=== PATIENT | female | born 1975 | race Caucasian/White ===

== ENCOUNTER 2022-07-28 14:42 | Emergency (ER) | payer MEDICAID, SELFPAY ==
[2022-07-28 14:44] VITALS: BP 158/95; PULSE 103; RESP 21; TEMP 36.4; O2SAT 100; BMI 20.7
--- NOTE | 2022-07-28 14:52 | EKG12_ITS ---
Test Reason : CP Blood Pressure : / mmHG Vent. Rate : 101 BPM Atrial Rate : 101 BPM P-R Int : 148 ms QRS Dur : 088 ms QT Int : 340 ms P-R-T Axes : 031 049 042 degrees QTc Int : 440 ms Sinus tachycardia Otherwise normal ECG Confirmed by GLORIA ZIEGLER, YONY ([id number]), book editor SIM SEVILLA ([id number]) on 07/31/2022 8:37:50 AM Referred By: Confirmed By:YONY CASTRO MD
--- NOTE | 2022-07-28 15:02 | RAD_ITS ---
EXAM: XR CHEST, 1 VIEW CLINICAL INDICATION: chest pain TECHNIQUE: Frontal view of the chest. COMPARISON: No relevant prior studies available. FINDINGS: LUNGS AND PLEURAL SPACES: Unremarkable. No consolidation or edema. No pneumothorax. No effusion. HEART: Unremarkable. Cardiac silhouette not enlarged. MEDIASTINUM: Central airways and mediastinal contour are unremarkable. BONES/JOINTS: Unremarkable. SOFT TISSUES: Unremarkable. RAD/Chest 1 View (Portable) IMPRESSION: No radiographic evidence of acute cardiopulmonary disease. Electronically Signed: Trent Grace MD at 15:28 EDT ,
--- NOTE | 2022-07-28 15:27 | ED.VIS.CHEST ---
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 Patient states she works at [employer], she just started 3 weeks ago. She was at work last night (she states is not overly strenuous) when she started to feel warm and tingly, her left face was tingly, she had ringing or ears and she felt like she was going to pass out. She left work and drove home. When she got home at 11:08 PM she checked her blood pressure and it was 204/124. Patient states she does try to stay calm and relaxed. When she woke up this morning she felt okay until around 10 minutes prior to arrival to the emergency room. States she felt her heart was racing and she checked her blood pressure and the top number was 190. She again felt like she was going to pass out and felt nauseous. She feels that her heart is racing. She states she never had any like this before. She denies any other symptoms such as difficulty breathing or chest pain. She denies any swelling of her legs. She denies any cough or URI symptoms. She notes that last weekend (1 week ago) she had about a 6-hour episode of pleuritic pain in her right lower ribs that spontaneously resolved. Patient is especially concerned because her father of a maker in his early 50s. Patient currently denies any numbness, tingling or weakness. No other complaints at this time. PFSH PFSH Allergy/AdvReac Type Severity Reaction Status Date / Time gabapentin AdvReac Other Verified 07/28/22 14:43 Pqwhcet-OPJ-GdU Reductase AdvReac Other Verified 07/28/22 14:43 Inhibitor Social History Smoking Status: Current every day smoker tobacco type: cigarettes ROS ROS ED Constitutional Constitutional ED: Denies chills or fever(s) Eyes Eyes: Denies blurry vision ENT ENT ED: Reports other Details: Intermittent ringing in her ears ; Denies ear pain, rhinorrhea or sore throat Cardiovascular Cardiovascular: Reports as per HPI and palpitations; Denies chest pain Respiratory/Chest Respiratory/Chest: Denies cough or dyspnea Gastrointestinal Gastrointestinal: Reports nausea; Denies abdominal pain or vomiting Genitourinary Genitourinary ED: Denies dysuria Musculoskeletal Musculoskeletal: Denies arthralgias or myalgias Integumentary Denies rash Neurologic Neurologic: Denies headache(s) or weakness Psychiatric Psychiatric: Reports anxiety Hematologic/Lymphatic Hematologic/Lymphatic: Denies easy bleeding or easy bruising EXAM Physical Exam Const Vital Signs: 07/28/22 14:44 07/28/22 14:46 07/28/22 14:52 Temperature 97.6 F L Temperature Source Temporal Pulse Rate 103 H Respiratory Rate 21 H Respiratory Effort Normal Non-Labored Blood Pressure 158/95 H Blood Pressure Mean 116 Pulse Ox 100 Oxygen Delivery Method Room Air Room Air 07/28/22 18:42 Temperature Temperature Source Pulse Rate Respiratory Rate Respiratory Effort Blood Pressure 131/97 H Blood Pressure Mean 108 Pulse Ox Oxygen Delivery Method Positive well nourished and well developed General Appearance ED: well developed and NAD HEENT Reports moist mucous membranes Eyes PERRL and EOMs intact bilaterally Neck supple and no JVD Chest Wall inspection of chest normal and palpation of chest normal Resp normal respiratory effort and clear to auscultation bilaterally Cardio regular rate, regular rhythm and no murmurs Peripheral Pulses: radial pulses present and dorsalis pedis pulses present GI normal to inspection, nondistended, normoactive bowel sounds and soft to palpation Extremity normal to inspection General Extremety ED: Negative for edema or pulses abnormal General Extremity: Negative for edema or pulses abnormal Neuro oriented x3, CN's II-XII intact bilaterally and no sensory deficits noted Neuro Narrative: NIH equals 0 Sensorium / Orientation: awake Motor Exam: strength 5/5 throughout; Negative for general weakness Psych mental status grossly normal Mood & Affect: anxious Skin no rashes or lesions noted and no wounds MDM MDM MDM Narrative Medical decision making narrative: Patient is a 47-year-old female presenting for palpitations. She does note elevated blood pressure readings at home. Patient's blood pressure is minimally elevated in the ER at 158/95 however on repeat it is now 131/97. Cardiac work-up as well as D-dimer and TSH is obtained. Patient is low risk per Wells criteria and her D-dimer is normal. Do not think a CTA is indicated. Her high since her troponin is normal x2. I do not think this is an ACS equivalent. Patient has a mildly elevated TSH with a normal free T3 3 and a mildly low free T4. Patient is counseled on this findings and need for outpatient follow-up for this. Patient encouraged to abstain from tobacco use. At this time I do think she is safe for outpatient follow-up for her palpitations. She does not have any significant arrhythmia or concerns for ischemia at this time. Patient is agreeable with this plan of care. Lab Data Attestation: I reviewed the patient's lab results. Labs: Laboratory Results - last 24 hr 07/28/22 07/28/22 07/28/22 14:55 14:55 14:55 WBC 7.5 RBC 4.73 Hgb 14.7 Hct 43.8 MCV 92.6 MCH 31.1 MCHC 33.6 RDW Std Deviation 42.5 RDW Coeff of Syd 12.4 Plt Count 259 MPV 10.4 Immature Gran % (Auto) 0.100 Neut % (Auto) 41.5 L Lymph % (Auto) 45.9 H [place] % (Auto) 8.9 Eos % (Auto) 2.8 Baso % (Auto) 0.8 Absolute Neuts (auto) 3.1 Absolute Lymphs (auto) 3.46 Nucleated RBC % 0 D-Dimer Quant (PE/DVT) 0.35 Sodium 140 Potassium 3.9 Chloride 105 Carbon Dioxide 27.0 Anion Gap 8 BUN 16 Creatinine 0.90 Estim Creat Clear Calc 67.45 Est GFR (MDRD) Af Amer 87 Est GFR (MDRD) Non-Af 72 BUN/Creatinine Ratio 17.8 Glucose 118 H Calcium 9.7 Magnesium 2.4 Troponin I High Sens 4 TSH 6.65 H Free T4 Free T3 pg/dL 07/28/22 07/28/22 14:55 17:34 WBC RBC Hgb Hct MCV MCH MCHC RDW Std Deviation RDW Coeff of Syd Plt Count MPV Immature Gran % (Auto) Neut % (Auto) Lymph % (Auto) [place] % (Auto) Eos % (Auto) Baso % (Auto) Absolute Neuts (auto) Absolute Lymphs (auto) Nucleated RBC % D-Dimer Quant (PE/DVT) Sodium Potassium Chloride Carbon Dioxide Anion Gap BUN Creatinine Estim Creat Clear Calc Est GFR (MDRD) Af Amer Est GFR (MDRD) Non-Af BUN/Creatinine Ratio Glucose Calcium Magnesium Troponin I High Sens 4 TSH Free T4 0.72 L Free T3 pg/dL 2.4 Radiography Chest X-Ray - ED: Read by ED Physician, Read by Radiologist and No Acute Disease Diagnostic Testing: Clinical Impression(s) from Imaging Studies Chest X-Ray 07/28/22 15:02 IMPRESSION: No radiographic evidence of acute cardiopulmonary disease. Electronically Signed: Trent Grace MD at 15:28 EDT , Rhythm Strip Rhythm Strip: Sinus Tach Rate: 101 Ectopy: None EKG Initial EKG: Attestation: I personally reviewed and interpreted this EKG as follows: Interpretation: Sinus Tachycardia Comments: Sinus tachycardia rate of 101 bpm Normal axis Normal intervals Normal ST segments Prior: No Prior Discharge Plan Triage Chief Complaint: Chest Pain ED Provider: María Stanley Dx/Rx/DC Orders Clinical Impression: Palpitation, Elevated blood pressure reading, Elevated TSH Instructions: ED Palpitations Primary Care Provider: Mehrdad Kennedy Referrals: Mehrdad Kennedy [Other] Activity Restrictions/Additional Instructions: Please follow-up with your primary care doctor for further evaluation of your symptoms today and for cardiac testing. Your TSH was minimally elevated and your free T4 was mildly low today. Your free T4 3 level was normal. This can be followed with your primary care doctor as well Disposition Disposition: Home, Self Care
[2022-07-28 15:31] LABS: Absolute Lymphocyte Count 3.46 X10^3/uL (0.83-4.51); Absolute Neutrophil Count 3.1 X10^3/uL (2.0-7.7); Basophil# 0.06 X10^3/uL; Basophil% 0.8 % (0-1); Eosinophil# 0.21 X10^3/uL; Eosinophils% 2.8 % (0-5); Hematocrit 43.8 % (37-47); Hemoglobin 14.7 g/dL (12.0-15.0); Lymphocyte # 3.46 X10^3/ul (0.83-4.51); Lymphocyte % 45.9 % (19-41); Mean Corp Hgb Conc 33.6 g/dL (32-36); Mean Corpuscular Hgb 31.1 pg (27.0-32.0); Mean Corpuscular Volume 92.6 fL (81-99); Mean Platelet Vol. 10.4 fl (6.2-12.0); Monocyte# 0.67 X10^3/uL; Monocyte% 8.9 % (0-10); NRBC Flagged by Analyzer 0 % (0-5); Neutrophil # 3.12 X10^3/uL (2.7-7.7); Neutrophil % 41.5 % (47-70); Platelet Count 259 K/mm3 (150-450); RBC Distribution Width CV 12.4 % (11.6-14.6); RBC Distribution Width SD 42.5 fl (35.1-43.9); Red Blood Count 4.73 M/mm3 (4.2-5.4); White Blood Count 7.5 K/mm3 (4.4-11.0)
[2022-07-28 15:51] LABS: Anion Gap 8 (5-15); BUN 16 mg/dL (7-18); BUN/Creat Ratio 17.8 RATIO (10-20); Calcium,Total 9.7 mg/dL (8.5-10.1); Chloride 105 mmol/L (98-107); EST Glomerular Filtration Rate 72 mL/min (>60); Est Glom Filt Rate - Afr Amer 87 mL/min (>60); Estimated Creatinine Clearance 67.45 ml/min; Glucose 118 mg/dL (74-106); Magnesium 2.4 mg/dL (1.6-2.6); Potassium 3.9 mmol/L (3.5-5.1); Sodium Level 140 mmol/L (136-145); Thyroid Stim Hormone (TSH) 6.65 uIU/mL (0.358-3.74); Troponin-I HS (w/2H Reflex) 4 pg/mL (3.0-54.0)
[2022-07-28] MEDS: 0.9% Normal Saline 1,000 ML 150 ML IV (15:58)
[2022-07-28 15:59] LABS: D-Dimer Quantitative (DVT/PE) 0.35 FEU/ug/m (0.27-0.49)
[2022-07-28 17:01] LABS: Reflex Troponin-HS? (from REC) Y
[2022-07-28 17:18] LABS: Free T3 2.4 pg/mL (2.18-3.98); T4 Free Direct 0.72 ng/dL (0.76-1.46)
[2022-07-28 18:29] LABS: Troponin-I HS 4 pg/mL (3.0-54.0)
[2022-07-28 18:42] VITALS: BP 131/97
[2022-07-28 19:04] VITALS: BP 124/81
== END 2022-07-28 19:18 | disposition home or self-care (01) ==
PROVIDERS: Emergency Provider Emergency Medicine; Visit Provider Emergency Medicine
DX: R00.2 Palpitations (principal); R03.0 Elevated blood-pressure reading, without diagnosis of hypertension; R94.6 Abnormal results of thyroid function studies; F17.210 Nicotine dependence, cigarettes, uncomplicated
CPT/HCPCS: 71045; 80048; 83735; 84439; 84443; 84481; 84484; 85025; 85379; 93005; 96360; 96361; 99284; J7030; A4216

== ENCOUNTER 2022-07-31 21:09 | Emergency (ER) | payer MEDICAID, SELFPAY ==
[2022-07-31 21:13] VITALS: BP 173/109; PULSE 111; RESP 15; TEMP 37.7; O2SAT 100; BMI 21.2
[2022-07-31 21:24] VITALS: O2SAT 100
--- NOTE | 2022-07-31 21:24 | EKG12_ITS ---
Test Reason : CP Blood Pressure : / mmHG Vent. Rate : 107 BPM Atrial Rate : 107 BPM P-R Int : 186 ms QRS Dur : 084 ms QT Int : 330 ms P-R-T Axes : 041 059 053 degrees QTc Int : 440 ms Sinus tachycardia Otherwise normal ECG Confirmed by GLORIA ZIEGLER, YONY ([id number]), material expeditor SIM SEVILLA ([id number]) on 08/01/2022 9:39:54 AM Referred By: WILMER Confirmed By:YONY CASTRO MD
[2022-07-31 21:41] LABS: Absolute Lymphocyte Count 2.25 X10^3/uL (0.83-4.51); Absolute Neutrophil Count 5.1 X10^3/uL (2.0-7.7); Basophil# 0.08 X10^3/uL; Eosinophil# 0.07 X10^3/uL; Eosinophils% 0.9 % (0-5); Hematocrit 47.6 % (37-47); Hemoglobin 16.2 g/dL (12.0-15.0); Lymphocyte # 2.25 X10^3/ul (0.83-4.51); Lymphocyte % 28.1 % (19-41); Mean Corpuscular Hgb 31.5 pg (27.0-32.0); Mean Corpuscular Volume 92.4 fL (81-99); Mean Platelet Vol. 9.9 fl (6.2-12.0); Monocyte# 0.44 X10^3/uL; Monocyte% 5.5 % (0-10); NRBC Flagged by Analyzer 0 % (0-5); Neutrophil # 5.14 X10^3/uL (2.7-7.7); Neutrophil % 64.1 % (47-70); Platelet Count 243 K/mm3 (150-450); RBC Distribution Width CV 12.3 % (11.6-14.6); Red Blood Count 5.15 M/mm3 (4.2-5.4)
--- NOTE | 2022-07-31 21:45 | RAD_ITS ---
EXAM: XR CHEST, 1 VIEW CLINICAL INDICATION: chest pain TECHNIQUE: Frontal view of the chest. COMPARISON: 07/28/2022 FINDINGS: LUNGS AND PLEURAL SPACES: Unremarkable. No consolidation or edema. No pneumothorax. No effusion. HEART: Unremarkable. Cardiac silhouette not enlarged. MEDIASTINUM: Central airways and mediastinal contour are unremarkable. BONES/JOINTS: Unremarkable. SOFT TISSUES: Unremarkable. RAD/Chest 1 View (Portable) IMPRESSION: No radiographic evidence of acute cardiopulmonary disease. Electronically Signed: Cl Gutierrez MD at 21:57 EDT ,
[2022-07-31 21:58] LABS: Anion Gap 7 (5-15); BUN 11 mg/dL (7-18); BUN/Creat Ratio 11.6 RATIO (10-20); Calcium,Total 10.2 mg/dL (8.5-10.1); Chloride 104 mmol/L (98-107); Creatinine, Serum 0.95 mg/dL (0.55-1.02); EST Glomerular Filtration Rate 67 mL/min (>60); Est Glom Filt Rate - Afr Amer 81 mL/min (>60); Glucose 110 mg/dL (74-106); Potassium 3.6 mmol/L (3.5-5.1); Sodium Level 138 mmol/L (136-145); Troponin-I HS (w/2H Reflex) 4 pg/mL (3.0-54.0)
[2022-07-31 22:11] VITALS: BP 155/93; PULSE 95; RESP 18; O2SAT 99
[2022-07-31 23:00] VITALS: BP 144/97; PULSE 87; RESP 19; O2SAT 100
[2022-07-31 23:38] LABS: Reflex Troponin-HS? (from REC) Y
[2022-08-01 00:08] LABS: Troponin-I HS 4 pg/mL (3.0-54.0)
--- NOTE | 2022-08-01 00:10 | EDS_ITS ---
HPI History of Present Illness Chief Complaint: Chest Pain Narrative Narrative: 47-year-old female presenting with intermittent chest pain. She also has intermittent elevation of her blood pressure. She has been monitoring it. She states today it was 210/104. She states that she does take clonidine as needed due to history of pressure headaches due to previous surgery from Chiari malformation. She states that she noted at the time when her blood pressure was elevated and her heart rate was 106. She states the pain radiated to the left chest and down the left arm. Denies sharp pleuritic pain. No pain with deep inspiration. Patient denies history of anxiety. PFSH PFS Home Medications dextroamphetamine-amphetamine ER 15 mg 24hr capsule,extend release (Adderall XR) 15 mg PO DAILY 07/31/22 [History Last Taken Unknown] Allergy/AdvReac Type Severity Reaction Status Date / Time gabapentin AdvReac Other Verified 07/31/22 21:21 Gpskfom-Rxu-Fin Reductase AdvReac Other Verified 07/31/22 21:21 Inhibitor [Gxyzfer-FOP-UtJ Reductase Inhibitor] Social History Smoking Status: Current every day smoker tobacco type: cigarettes ROS ROS ED Constitutional Constitutional ED: Denies chills, fever(s) or sweats Eyes Eyes: Denies blurry vision or change in vision ENT ENT ED: Denies ear pain or sore throat Cardiovascular Cardiovascular: Reports chest pain, palpitations and racing heartbeat Respiratory/Chest Respiratory/Chest: Denies cough, dyspnea or sputum Gastrointestinal Gastrointestinal: Denies abdominal pain, constipation, diarrhea, nausea or vomiting Genitourinary Genitourinary ED: Denies dysuria, hematuria or urinary frequency Musculoskeletal Musculoskeletal: Denies arthralgias, myalgias or neck pain Integumentary Denies abscess, Abrasions or rash Neurologic Neurologic: Denies headache(s), paresthesias or weakness Psychiatric Psychiatric: Denies anxiety, depression, suicidal ideation or suicidal thoughts Endocrine Endocrinology: Denies polydipsia or polyuria EXAM Physical Exam Const Vital Signs: 07/31/22 21:13 07/31/22 21:24 07/31/22 21:24 Temperature 99.9 F H Temperature Source Temporal Pulse Rate 111 H Respiratory Rate 15 Respiratory Effort Normal Non-Labored Blood Pressure 173/109 H Blood Pressure Mean 130 Pulse Ox 100 100 Oxygen Delivery Method Room Air Room Air 07/31/22 22:11 07/31/22 23:00 Temperature Temperature Source Pulse Rate 95 87 Respiratory Rate 18 19 H Respiratory Effort Blood Pressure 155/93 H 144/97 H Blood Pressure Mean 113 112 Pulse Ox 99 100 Oxygen Delivery Method Room Air Room Air Positive well nourished General Appearance ED: NAD; Negative for pallor HEENT Reports moist mucous membranes normocephalic and atraumatic Eyes PERRL Resp normal respiratory effort and clear to auscultation bilaterally Auscultation: Negative for rales, rhonchi or wheezes Cardio regular rate and regular rhythm Extremity normal to inspection Neuro oriented x3 and CN's II-XII intact bilaterally Sensorium / Orientation: awake and alert Motor Exam: strength 5/5 throughout Psych Mood & Affect: anxious Skin no rashes or lesions noted General Skin Exam: Negative for jaundice or pallor Heart Score History: Slightly/Non-Suspicious ECG: Normal Age: >45 - <65 years Risk Factors: 1 or 2 Risk Factors Troponin: </= Normal Limit Score: 2 MDM MDM MDM Narrative Medical decision making narrative: Patient presenting with chest pain. She just had a work-up recently with similar findings. Her blood pressure is normalized for the most part down to 144/97. She does not have any active chest pain now. Differential includes ACS, pneumonia, anxiety. Considered PE however she is not having sharp pleuritic pain she recently had a negative D-dimer. CBC shows a normal white blood cell count. Hemoglobin hematocrit are stable. Platelets are normal. Renal function electrolytes within normal limits. High-sensitivity troponin is 4 and delta troponin is 4 so there is no significant interval change. I counseled patient that she will need to keep a blood pressure diary and follow- up with her primary care physician. Return precautions were discussed. Impression: 1. Chest pain 2. Elevated blood pressure Lab Data Labs: Laboratory Results - last 24 hr 07/31/22 07/31/22 07/31/22 21:34 21:34 23:45 WBC 8.0 RBC 5.15 Hgb 16.2 H Hct 47.6 H MCV 92.4 MCH 31.5 MCHC 34.0 RDW Std Deviation 42.0 RDW Coeff of Syd 12.3 Plt Count 243 MPV 9.9 Immature Gran % (Auto) 0.400 Neut % (Auto) 64.1 Lymph % (Auto) 28.1 [place] % (Auto) 5.5 Eos % (Auto) 0.9 Baso % (Auto) 1.0 Absolute Neuts (auto) 5.1 Absolute Lymphs (auto) 2.25 Nucleated RBC % 0 Sodium 138 Potassium 3.6 Chloride 104 Carbon Dioxide 27.0 Anion Gap 7 BUN 11 Creatinine 0.95 Estim Creat Clear Calc 63.90 Est GFR (MDRD) Af Amer 81 Est GFR (MDRD) Non-Af 67 BUN/Creatinine Ratio 11.6 Glucose 110 H Calcium 10.2 H Troponin I High Sens 4 4 Radiography Diagnostic Testing: Clinical Impression(s) from Imaging Studies Chest X-Ray 07/31/22 21:45 IMPRESSION: No radiographic evidence of acute cardiopulmonary disease. Electronically Signed: Cl Gutierrez MD at 21:57 EDT , Discharge Plan Triage Chief Complaint: Chest Pain ED Provider: Domingo Maldonado Dx/Rx/DC Orders Prescriptions: No Action dextroamphetamine-amphetamine [Adderall XR] 15 mg capsule,extended release 24hr 15 mg PO DAILY Label Comments: TAKE ONE CAPSULE BY MOUTH DAILY Primary Care Provider: Mehrdad Kennedy Referrals: Mehrdad Kennedy [Other]
[2022-08-01 00:19] VITALS: BP 146/97; PULSE 86; RESP 16; O2SAT 99
== END 2022-08-01 00:20 | disposition home or self-care (01) ==
PROVIDERS: Emergency Provider Student in an Organized Health Care Education/Training Program; Visit Provider Student in an Organized Health Care Education/Training Program
DX: R07.9 Chest pain, unspecified (principal); R03.0 Elevated blood-pressure reading, without diagnosis of hypertension; F17.210 Nicotine dependence, cigarettes, uncomplicated
CPT/HCPCS: 71045; 80048; 84484; 85025; 93005; 99283; A4216

== ENCOUNTER 2023-02-06 14:50 | Emergency (ER) | payer BC, SELFPAY ==
[2023-02-06 14:51] VITALS: BP 208/122; PULSE 118; RESP 18; TEMP 36.6; O2SAT 100; BMI 20.8
--- NOTE | 2023-02-06 15:26 | EKG12_ITS ---
Test Reason : CP Blood Pressure : / mmHG Vent. Rate : 093 BPM Atrial Rate : 093 BPM P-R Int : 152 ms QRS Dur : 090 ms QT Int : 338 ms P-R-T Axes : 039 063 056 degrees QTc Int : 420 ms Normal sinus rhythm Normal ECG Confirmed by JOSI ZIEGLER, KEVEN ([id number]), mapping editor SIM SEVILLA ([id number]) on 02/11/2023 1:52:38 P M Referred By: BUBBA/TONE Confirmed By:RADHA PRATER MD
--- NOTE | 2023-02-06 15:26 | ED.VIS.CHEST ---
HPI History of Present Illness Chief Complaint: Chest Pain Narrative Narrative: 47-year-old female, past medical history of anxiety, smoker, presents with chest pain that she has had intermittently since 6 PM last evening. She does state that she takes Adderall. She states she had a workup for chest pain this past summer, few months ago, and she was post to follow-up with cardiology and an echocardiogram, but she states that her insurance did not approve it because there was no proof. She presents with chest pain and tightness that is midsternal. She became nauseated and dizzy as well. She notes that she took her blood pressure and it was elevated above 200 systolic. She does not necessarily take anything for her blood pressure, but states she only takes clonidine as needed for anxiety and rarely takes it. She did however take 1 prior to arrival. She also states she has a family history and that her dad had a heart attack at an early age. PFSH PFS Home Medications dextroamphetamine-amphetamine ER 15 mg 24hr capsule,extend release (Adderall XR) 15 mg PO DAILY 07/31/22 [History Last Taken Unknown] Allergy/AdvReac Type Severity Reaction Status Date / Time gabapentin AdvReac Other Verified 02/06/23 14:52 Lpjdmxh-Bzh-Cdn Reductase AdvReac Other Verified 02/06/23 14:52 Inhibitor [Gexlhhs-SVW-PmZ Reductase Inhibitor] Social History Smoking Status: Current every day smoker tobacco type: cigarettes ROS ROS ED ROS Narrative Constitutional: No fever, no chills. HEENT: No sore throat. No neck pain. No loss of vision. No rhinorrhea. Cardiovascular: Positive midsternal chest tightness/chest pain. No palpitations. No pedal edema. Respiratory: No cough, no shortness of breath. Abdominal: No abdominal pain. Positive nausea. No vomiting. Genitourinary: No dysuria. No hematuria. Musculoskeletal: No myalgias. No arthralgias. Neurologic: No headaches. Positive lightheadedness and dizziness. Skin: No rash. No change in color. Psychiatric: No depression. No anxiety. EXAM Physical Exam Narrative Exam Narrative: Afebrile. Vital signs noted. HEENT: Normocephalic. Atraumatic. PERRL, EOMI. Neck soft and supple. No point tenderness or step off. Cardiovascular: Regular rate and rhythm. No murmurs, rubs, or gallops appreciated. Respiratory: No tachypnea. Lungs clear to auscultation bilaterally. Gastrointestinal: Abdomen soft, nontender, with normoactive bowel sounds. No rebound or guarding. Neurological: Awake. Alert. Nonfocal, nonlateralizing. Skin: No rash. Normal color. No pallor. Musculoskeletal: No pedal edema. Full range of motion extremities. Const Vital Signs: 02/06/23 14:51 02/06/23 15:37 02/06/23 15:37 Temperature 97.8 F Temperature Source Temporal Pulse Rate 118 H Respiratory Rate 18 Respiratory Effort Normal Blood Pressure 208/122 H Blood Pressure Mean 150 Pulse Ox 100 Oxygen Delivery Method Room Air Room Air Heart Score History: Slightly/Non-Suspicious ECG: Normal Age: >45 - <65 years Risk Factors: 1 or 2 Risk Factors Score: 2 MDM MDM MDM Narrative Medical decision making narrative: In the differential diagnosis acute coronary syndrome versus pulmonary embolism versus hypertensive urgency/emergency. Her blood pressure was elevated at 208/122 in triage. Without intervention it is come down to 177 systolic. EKG was obtained and interpreted by myself independently as normal sinus rhythm at 93 bpm without ectopy or acute ST changes. No STEMI. We do feel that she needs serial enzymes, and a D-dimer. Chest x-ray will be obtained. Her pulse ox is 100% on room air without evidence of hypoxia. I have low suspicion for pneumothorax or pneumonia because the history and physical does not support this and she has equal breath sounds with a pulse ox of 100%. Upon repeat examination, her blood pressure is now 129 systolic at approximately 1640. I reviewed her laboratory work from today and she has normal white count of 6.0, hemoglobin normal at 14.1, hematocrit 41.9, platelet count normal at 257. D-dimer is negative at less than 0.27. Electrolyte panel shows chloride slightly elevated at 109 which I think is nonspecific, otherwise unremarkable. This is with exception of glucose of 125 but she has an anion gap low at 2. I do feel that her blood pressure may be influencing her chest pain. Her initial high-sensitivity troponin is 5. Chest x-ray 1 view interpreted by myself independently shows no evidence of pneumonia or pneumothorax. I reviewed the radiology report which confirms my independent interpretation. As her repeat troponin is 5, and her blood pressure is normalized, I feel she can be discharged to follow-up with her primary care provider. I do not feel she requires observation at this time. Return instructions to the emergency department were reviewed. Disposition is discharged home in stable condition. History & Record Review Discussion w/independent historian: Patient Additional record(s) reviewed:: Prior ED visit and Prior labs Lab Data Attestation: I reviewed the patient's lab results. Labs: Laboratory Results - last 24 hr 02/06/23 02/06/23 02/06/23 15:41 16:05 17:51 WBC 6.0 RBC 4.48 Hgb 14.1 Hct 41.9 MCV 93.5 MCH 31.5 MCHC 33.7 RDW Std Deviation 43.5 RDW Coeff of Syd 12.7 Plt Count 257 MPV 9.8 Immature Gran % (Auto) 0.300 Neut % (Auto) 63.3 Lymph % (Auto) 27.2 [place] % (Auto) 6.6 Eos % (Auto) 1.8 Baso % (Auto) 0.8 Absolute Neuts (auto) 3.8 Absolute Lymphs (auto) 1.64 Nucleated RBC % 0 D-Dimer Quant (PE/DVT) Cancelled < 0.27 L Sodium 141 Potassium 3.5 Chloride 109 H Carbon Dioxide 30.0 Anion Gap 2 L BUN 11 Creatinine 0.76 Estim Creat Clear Calc 79.87 Est GFR (MDRD) Af Amer 104 Est GFR (MDRD) Non-Af 86 BUN/Creatinine Ratio 14.4 Glucose 125 H Calcium 9.5 Troponin I High Sens 5 5 Radiography Diagnostic Testing: Clinical Impression(s) from Imaging Studies Chest X-Ray 02/06/23 15:50 IMPRESSION: Normal x-ray examination of the chest. Electronically Signed: Greg Hubbard MD at 16:07 EST , Discharge Plan Triage Chief Complaint: Chest Pain ED Provider: Trent Isabel Dx/Rx/DC Orders Clinical Impression: Elevated blood pressure reading, Chest pain Instructions: ED Chest Pain, Uncertain Cause, ED Hypertension, To Be Confirmed Prescriptions: No Action dextroamphetamine-amphetamine [Adderall XR] 15 mg capsule,extended release 24hr 15 mg PO DAILY Patient Comments: TAKE ONE CAPSULE BY MOUTH DAILY Primary Care Provider: Mehrdad Kennedy Referrals: Mehrdad Kennedy [Other] - 3-5 Days Disposition Disposition: Home, Self Care
[2023-02-06 15:49] LABS: Absolute Lymphocyte Count 1.64 X10^3/uL (0.83-4.51); Absolute Neutrophil Count 3.8 X10^3/uL (2.0-7.7); Basophil# 0.05 X10^3/uL; Basophil% 0.8 % (0-1); Eosinophil# 0.11 X10^3/uL; Eosinophils% 1.8 % (0-5); Hematocrit 41.9 % (37-47); Hemoglobin 14.1 g/dL (12.0-15.0); Lymphocyte # 1.64 X10^3/ul (0.83-4.51); Lymphocyte % 27.2 % (19-41); Mean Corp Hgb Conc 33.7 g/dL (32-36); Mean Corpuscular Hgb 31.5 pg (27.0-32.0); Mean Corpuscular Volume 93.5 fL (81-99); Mean Platelet Vol. 9.8 fl (6.2-12.0); Monocyte% 6.6 % (0-10); NRBC Flagged by Analyzer 0 % (0-5); Neutrophil # 3.81 X10^3/uL (2.7-7.7); Neutrophil % 63.3 % (47-70); Platelet Count 257 K/mm3 (150-450); RBC Distribution Width CV 12.7 % (11.6-14.6); RBC Distribution Width SD 43.5 fl (35.1-43.9); Red Blood Count 4.48 M/mm3 (4.2-5.4)
--- NOTE | 2023-02-06 15:50 | RAD_ITS ---
STUDY: X-RAY CHEST REASON FOR EXAM: Female, 47 years old. chest pain TECHNIQUE: AP portable COMPARISON: July 31, 2022 FINDINGS: The lungs are clear and expanded. There is no demonstrated pleural abnormality. Normal size heart. Normal mediastinum and dago. Normal visualized pulmonary arteries. Normal visualized aortic arch and descending thoracic aorta. Normal visualized thoracic spine. Normal visualized ribs, clavicles, and shoulders. There is no demonstrated abnormality of the visualized soft tissue structures of the upper abdomen. RAD/Chest 1 View (Portable) IMPRESSION: Normal x-ray examination of the chest. Electronically Signed: Greg Hubbard MD at 16:07 [facility] ,
--- NOTE | 2023-02-06 15:59 | NURSING ---
DDIMER NEEDS REDRAWN
[2023-02-06 16:00] VITALS: BP 158/78
[2023-02-06 16:06] LABS: Anion Gap 2 (5-15); BUN 11 mg/dL (7-18); BUN/Creat Ratio 14.4 RATIO (10-20); Calcium,Total 9.5 mg/dL (8.5-10.1); Chloride 109 mmol/L (98-107); Creatinine, Serum 0.76 mg/dL (0.55-1.02); EST Glomerular Filtration Rate 86 mL/min (>60); Est Glom Filt Rate - Afr Amer 104 mL/min (>60); Estimated Creatinine Clearance 79.87 ml/min; Glucose 125 mg/dL (74-106); Potassium 3.5 mmol/L (3.5-5.1); Sodium Level 141 mmol/L (136-145); Troponin-I HS (w/2H Reflex) 5 pg/mL (3.0-54.0)
[2023-02-06] MEDS: Aspirin 81 MG TAB.CHEW 324 MG PO (16:21)
[2023-02-06 16:36] LABS: D-Dimer Quantitative (DVT/PE) < 0.27 FEU/ug/m (0.27-0.49)
[2023-02-06 17:00] VITALS: BP 143/64
[2023-02-06 17:46] LABS: Reflex Troponin-HS? (from REC) Y
[2023-02-06 18:00] VITALS: BP 129/94; PULSE 78; RESP 16; O2SAT 99
[2023-02-06 18:24] LABS: Troponin-I HS 5 pg/mL (3.0-54.0)
== END 2023-02-06 18:34 | disposition home or self-care (01) ==
PROVIDERS: Emergency Provider Emergency Medicine; Visit Provider Emergency Medicine
DX: R07.89 Other chest pain (principal); R03.0 Elevated blood-pressure reading, without diagnosis of hypertension; F17.210 Nicotine dependence, cigarettes, uncomplicated; Z82.49 Family history of ischemic heart disease and other diseases of the circulatory system
CPT/HCPCS: 71045; 80048; 84484; 85025; 85379; 93005; 99285; A4216

== ENCOUNTER 2023-02-20 04:40 | Emergency (ER) | payer BC, SELFPAY ==
[2023-02-20 04:41] VITALS: BP 183/113; PULSE 74; RESP 16; TEMP 35.9; O2SAT 100; BMI 20.7
--- NOTE | 2023-02-20 05:01 | EDS_ITS ---
HPI HPI - URI History of Present Illness Chief Complaint: Cold Sx Informant: patient Onset/Context/Timing Onset: Today Context: Sudden Onset Timing: Continuous Quality: Fever Location: Generalized Worsened by: - (Nothing) Relieved by: - (Nothing) Associated Symptoms Associated Symptoms: Positive for Nausea and Shortness of Breath; Negative for Nasal Congestion, Headache, Sinus Pressure, Myalgias, Vomiting, Diarrhea, Chest Pain, Nonproductive cough, Hemoptysis or Productive Cough Narrative Narrative: Patient presents with fever and shortness of breath that began today. Patient states it began rather suddenly. Patient denies any cough. Patient admits to subjective fevers and sweats. Patient admits to some nausea but denies any vomiting. Patient does admit to some pain in her back. Patient denies any sore throat or sinus congestion. Patient denies any headaches. Patient denies any chest pain. Patient is a smoker. ROS ROS ED Constitutional Constitutional ED: Reports fever(s), subjective and sweats; Denies chills Eyes Eyes: Denies blurry vision or change in vision ENT ENT ED: Denies rhinorrhea or sore throat Cardiovascular Cardiovascular: Denies chest pain or palpitations Respiratory/Chest Respiratory/Chest: Reports dyspnea; Denies cough Gastrointestinal Gastrointestinal: Reports nausea; Denies vomiting Genitourinary Genitourinary ED: Denies dysuria or hematuria Musculoskeletal Musculoskeletal: Reports back pain; Denies neck pain Integumentary Denies abscess or rash Neurologic Neurologic: Denies headache(s) or weakness Allergic/Immunologic Allergic/Immunologic ED: Denies mouth swelling or urticaria [facility] Medical History (Updated 02/20/23 @ 07:[address] Eyad Morrow DO) ADD (attention deficit disorder) Chiari malformation Home Medications dextroamphetamine-amphetamine ER 15 mg 24hr capsule,extend release (Adderall XR) 15 mg PO DAILY 07/31/22 [History Last Taken Unknown] Allergy/AdvReac Type Severity Reaction Status Date / Time gabapentin AdvReac Other Verified 02/20/23 04:41 [id number] Reductase AdvReac Other Verified 02/20/23 04:41 Inhibitor Surgical History (Updated 02/20/23 @ 05:[address] Eyad Morrow DO) Hx of brain surgery Social History Smoking Status: Current every day smoker tobacco type: cigarettes EXAM Physical Exam Const Vital Signs: 02/20/23 04:41 02/20/23 04:41 02/20/23 06:09 Temperature 96.7 F L Temperature Source Temporal Pulse Rate 74 71 Respiratory Rate 16 16 Respiratory Pattern Normal Normal Blood Pressure 183/113 H Blood Pressure Mean 136 Pulse Ox 100 Positive well nourished and well developed General Appearance ED: well developed and NAD HEENT Reports moist mucous membranes Neck supple and no JVD Resp normal respiratory effort Auscultation: diminished lung sounds diffuse Cardio Rate: regular rate Rhythm: regular rhythm GI non-tender and non-distended Palpation: soft Neuro oriented x3, CN's II-XII intact bilaterally and no sensory deficits noted Sensorium / Orientation: alert Motor Exam: strength 5/5 throughout Psych mental status grossly normal MDM MDM MDM Narrative Medical decision making narrative: Differential diagnosis includes pneumonia, viral bronchitis, COVID-19 infection, influenza infection, and upper respiratory infection. Chest x-ray will be obt ained to assess for pneumonia and pneumothorax. COVID-19 rapid antigen will be obtained to assess for COVID-19 infection. Influenza A and influenza B antigens will be obtained to assess for influenza infection. Lab Data Lab results narrative: COVID-19 rapid antigen was reviewed and was negative. Influenza A and influenza B antigens were reviewed and were negative. Radiography Chest X-Ray - ED: 2 View, Read by ED Physician, Read by Radiologist and No Acute Disease Diagnostic Testing: Clinical Impression(s) from Imaging Studies Chest X-Ray 02/20/23 06:00 IMPRESSION: No evidence of cardiopulmonary disease. Electronically Signed: Greg Navarro DO at 6:23 [facility] , [place] and lateral chest x-ray was obtained. There are 2 views. On my independent interpretation, lung sexton are clear. There is normal cardiac silhouette. Bony thorax is normal. There is no acute process noted. Radiologist also interpreted the x-ray and agrees. Treatment and Re-Evaluation Narrative: Smoking cessation was discussed. Patient was given a DuoNeb aerosol here. Patient is feeling better on reevaluation. Patient was advised of her findings. Patient was advised that she most likely has a viral upper respiratory infection or viral bronchitis. Patient was instructed to drink plenty of fluids. Patient was instructed to take Tylenol or ibuprofen as needed for pain. Patient was instructed to follow-up with her primary care physician in 5 to 7 days. Patient understood and was agreeable with the plan. All questions were answered. Discharge Plan Triage Chief Complaint: Cold Sx ED Provider: Eyad Morrow Dx/Rx/DC Orders Clinical Impression: Viral upper respiratory tract infection, Viral bronchitis Instructions: ED URI, Viral, No Abx (Adult) Prescriptions: No Action dextroamphetamine-amphetamine [Adderall XR] 15 mg capsule,extended release 24hr 15 mg PO DAILY Patient Comments: TAKE ONE CAPSULE BY MOUTH DAILY Primary Care Provider: NOT,DEFINED Referrals: NOT,DEFINED [Primary Care Provider] - 5-7 Days Disposition Disposition: Home, Self Care
--- NOTE | 2023-02-20 06:00 | RAD_ITS ---
INDICATION: Dyspnea EXAMINATION/TECHNIQUE: X-RAY - XR Chest 2 Views COMPARISON: 02/06/2023. FINDINGS: LINES/DEVICES: None. LUNGS: No consolidation or evidence of an effusion. No evidence of edema or a pneumothorax. MEDIASTINUM AND CARDIOVASCULAR STRUCTURES: Cardiac silhouette is normal in size and contour. Mediastinum is unremarkable. BONES AND SOFT TISSUES: No acute abnormality. RAD/Chest PA and Lateral IMPRESSION: No evidence of cardiopulmonary disease. Electronically Signed: Greg Navarro DO at 6:23 EST ,
[2023-02-20] MEDS: Ipratropium/Albuterol Sulfate 3 ML AMPUL.NEB INHALATION (06:07)
[2023-02-20 06:09] VITALS: PULSE 71; RESP 16
== END 2023-02-20 07:16 | disposition home or self-care (01) ==
PROVIDERS: Emergency Provider Emergency Medicine; Visit Provider Emergency Medicine
DX: J20.8 Acute bronchitis due to other specified organisms (principal); J06.9 Acute upper respiratory infection, unspecified; B97.89 Other viral agents as the cause of diseases classified elsewhere; F17.210 Nicotine dependence, cigarettes, uncomplicated
CPT/HCPCS: 71046; 87428; 94640; 99282